=== PATIENT | male | born 1965 | race Caucasian/White ===

== ENCOUNTER 2016-11-10 21:40 | Emergency (ER) | payer SELFPAY ==
[~2016-11-10] VITALS: Ht 177.8 cm; Wt 124.7 kg
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
--- NOTE | 2016-11-10 21:49 | NUR ---
TIME OF CALLED BY DR. BARRY AT THIS TIME
--- NOTE | 2016-11-10 22:40 | NUR ---
[facility] notified of . supervisor machine workers to call back.
--- NOTE | 2016-11-10 22:50 | NUR ---
Wellness Specialist's office notified of . Wellness Specialist to call back.
--- NOTE | 2016-11-11 00:16 | NUR ---
AC/DC REWINDER AT [facility]
--- NOTE | 2016-11-11 01:10 | NUR ---
BODY RELEASED TO [facility].
[2016-11-11] MEDS ORDERED: CODE BLUE PARTICIPANT 1 EA MISC MC ONE (08:25)
== END 2016-11-10 22:50 | disposition expired ==
LOC: MED 21:40
DX: I46.9 Cardiac arrest, cause unspecified (principal); V49.60XA Unspecified car occupant injured in collision with unspecified motor vehicles in traffic accident, initial encounter; Y93.89 Activity, other specified; Y92.89 Other specified places as the place of occurrence of the external cause; Y99.8 Other external cause status
CPT/HCPCS: 31500; 99285